=== PATIENT | male | born 1960 | race Caucasian/White ===

== ENCOUNTER 2016-12-14 08:54 | Inpatient (IN) | payer OTHER ==
[~2016-12-14] VITALS: Ht 172.7 cm; Wt 83.5 kg
[2016-12-14] MEDS ORDERED: SODIUM CHLORIDE 0.9% 1000ML 1,000 ML IV STA (09:23)
[2016-12-14] MEDS ORDERED: MoRPHine SULFATE 4 MG/ML 1 ML CARP\\VIAL IV STA ×2 (09:23→11:03)
[2016-12-14] MEDS ORDERED: ONDANSETRON INJ 2 MG/ML 2 ML VIAL IV STA (09:23)
[2016-12-14] MEDS ORDERED: LISI-461 PO (09:28)
[2016-12-14 09:48] LABS: BASO % 0.1 %; BASO ABS # 0.01 K/uL (0-0.2); COMPLETE YES; EOS % 0.1 %; HEMATOCRIT 48.8 % (42-52); IG% 0.3 %; LYMPH % 6.2 %; LYMPH ABS # 0.91 K/uL (1.2-3.4); MEAN CELL VOLUME 87.8 fL (80-100); MEAN CORPUSCULAR HEMOGLOBIN 31.3 pg (25-34); MEAN CORPUSCULAR HGB CONC 35.7 g/dl (32-36); MEAN PLATELET VOLUME 11.4 fL (7.4-10.4); MONO % 4.4 %; NEUT % 88.9 %; PLATELET COUNT 202 K/uL (130-400); RED BLOOD COUNT 5.56 M/uL (4.7-6.1); WHITE BLOOD COUNT 14.74 K/uL (4.8-10.8)
[2016-12-14 10:09] LABS: BUN/CREATININE RATIO 13.5 (10-20); CALCIUM 9.1 mg/dl (8.5-10.1); CREATININE 1.1 mg/dl (0.60-1.40); POTASSIUM 3.3 mmol/L (3.5-5.1)
[2016-12-14 10:26] LABS: URINE APPEARANCE TURBID (CLEAR); URINE BILIRUBIN NEG (NEG); URINE COLOR YELLOW; URINE EPITHELIAL CELL AUTO 20-30 /lpf (0-5); URINE NITRITE NEG (NEG); URINE SPECIFIC GRAVITY 1.019 (1.000-1.030); UROBILINOGEN NEG (NEG)
[2016-12-14 10:32] LABS: MANUAL MICROSCOPIC REQUIRED? NO; REVIEW REQ? NO
--- NOTE | 2016-12-14 10:58 | DIAGNOSTIC IMAGING REPORT ---
GALLBLADDER-ABD LIMITED HISTORY:56 yearsMaleABDOMINAL PAIN/GI COMPARISON: None available TECHNIQUE: Multiple real-time sonographic images of the abdominal right upper quadrant were obtained assessing grayscale appearance and color flow FINDINGS: The imaged pancreas is unremarkable. Distal body and tail are secured by bowel gas. Liver measures up to 14.9 cm and is unremarkable without focal mass. Common bile duct is normal, 0.5 cm. Echogenic nonshadowing focus along the nondependent gallbladder wall is seen, 0.4 cm. No internal flow is identified. No shadowing cholelithiasis, gallbladder wall thickening or pericholecystic fluid collections. The imaged right kidney is unremarkable without hydronephrosis. IMPRESSION: 1. No evidence of cholelithiasis or acute cholecystitis. 2. 0.4 cm non-shadowing echogenic focus along the nondependent gallbladder wall suggests gallbladder polyp. 3. No biliary ductal dilatation. The above report was generated using voice recognition software. It may contain grammatical, syntax or spelling errors. Electronically signed by: Senthil Louis M.D. 12/14/2016 10:57 AM Dictated Date/Time: 12/14/2016 10:54 AM
--- NOTE | 2016-12-14 11:01 | DIAGNOSTIC IMAGING REPORT ---
CHEST 2 VIEWS ROUTINE CLINICAL HISTORY: 56 years-old Male presenting with ABDOMINAL PAIN/GI. TECHNIQUE: PA and lateral views of the chest were obtained. COMPARISON: None. FINDINGS: Cardiomediastinal silhouette normal. Lungs and pleural spaces clear. Osseous structures and upper abdomen normal. IMPRESSION: 1. No acute cardiopulmonary disease. Electronically signed by: Brad Wiggins M.D. 12/14/2016 11:00 AM Dictated Date/Time: 12/14/2016 10:59 AM
[2016-12-14] MEDS ORDERED: SODIUM CHLORIDE 0.9% 1000ML 1,000 ML IV ONE (11:15)
[2016-12-14] MEDS ORDERED: ACETAMINOPHEN 325 MG TAB PO STA (11:24)
[2016-12-14 12:32] VITALS: BP 140/81; TEMP 36.6; Ht 172.7 cm; Wt 83.5 kg
[2016-12-14] MEDS ORDERED: MoRPHine SULFATE 4 MG/ML 1 ML CARP\\VIAL IV PRN (12:45)
[2016-12-14] MEDS ORDERED: ENALAPRILAT IV 1.25 MG in DEXTROSE 5% 25ML 25 ML IV PRN (12:45)
[2016-12-14] MEDS ORDERED: ONDANSETRON INJ 2 MG/ML 2 ML VIAL IV PRN (12:45)
[2016-12-14] MEDS ORDERED: POTASSIUM CHLORIDE 10 MEQ / 100ML WTR IV STA (12:54)
--- NOTE | 2016-12-14 12:58 | History and Physical ---
History & Physical Date & Time of Service: Dec 14, 2016 at 11:59 Chief Complaint: Severe Abdominal Pain Primary Care Physician: Selvin Menjivar M.D. History of Present Illness Source: patient Pt is a 56 yo male with a h/o HTN here with 8-9 hours of upper abd pain since 0200 this AM. Described as a gas pain or fullness, started low and increased throughout the AM, radiated to his back. Had a BM with no relief, tried TUMS with no change. Induced vomiting and this did not help either with the pain. Denies hematemesis or hematochezia. Pain currently 3/10 but received morphine, worse with moving around. Has never had pain like this before. Has some mild nausea. [place] some hot flashes and cold chills this AM but no documented fever. He does drink EtOH 1 glass wine daily and 2-3 drinks per day on the weekends. Lipase was elevated in the ER at 1600. LFTs normal, RUQ US was normal. CT pending at the time of admission. Pt will be admitted with acute pancreatitis. 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[employer] Immunizations History of Influenza Vaccine: Yes Allergies Coded Allergies: No Known Allergies (Unverified , 12/14/16) Home Medications Scheduled Lisinopril (Zestril), 10 MG PO DAILY Review of Systems Constitutional: + chills, + sweats Eyes: No problem reported ENT: No sore throat Respiratory: No cough, No shortness of breath Cardiovascular: No chest pain, No edema Abdomen: + pain, + nausea, No vomiting (except once self-induced), No diarrhea , No constipation, No GI bleeding Musculoskeletal: No joint pain Genitourinary - Male: No problem reported Neurologic: No problem reported Psychiatric: No problem reported Endocrine: No problem reported Hematologic / Lymphatic: No problem reported Integumentary: No problem reported Allergic / Immunologic: No problem reported Physical Exam Vital Signs Date Time Temp Pulse Resp B/P (MAP) Pulse Ox O2 Delivery O2 Flow Rate FiO2 12/14/16 11:14 69 18 140/81 98 Room Air 12/14/16 09:50 68 18 166/90 96 12/14/16 09:48 70 12/14/16 08:59 36.6 65 18 155/85 98 Room Air General Appearance: WD/WN, no apparent distress Head: normocephalic, atraumatic Eyes: normal inspection, PERRL, EOMI, sclerae normal ENT: hearing grossly normal, pharynx normal Neck: supple, no adenopathy, thyroid normal, no JVD, no carotid bruits, trachea midline Respiratory/Chest: lungs clear, normal breath sounds, no respiratory distress, no accessory muscle use Cardiovascular: regular rate, rhythm, no edema, no gallop, no JVD, no murmur, normal peripheral pulses Abdomen/GI: soft, no organomegaly, no pulsatile mass, + tenderness (mild in epigastric region and periumbilical region without guarding or rebound), + abnormal bowel sounds (hypoactive) Back: normal inspection, no muscle spasm Extremities/Musculoskelatal: normal inspection, no calf tenderness, normal capillary refill, no pedal edema, normal range of motion Neurologic/Psych: no motor/sensory deficits, alert, normal mood/affect, oriented x 3 Skin: normal color, warm/dry, no rash Lymphatic: no adenopathy Diagnostics Laboratory Results Results Past 24 Hours Test 12/14/16 09:40 12/14/16 09:47 12/14/16 09:50 Range/Units White Blood Count 14.74 4.8-10.8 K/uL Red Blood Count 5.56 4.7-6.1 M/uL Hemoglobin 17.4 14.0-18.0 g/dL Hematocrit 48.8 42-52 % Mean Corpuscular Volume 87.8 80-100 fL Mean Corpuscular Hemoglobin 31.3 25-34 pg Mean Corpuscular Hemoglobin Concent 35.7 32-36 g/dl Platelet Count 202 130-400 K/uL Mean Platelet Volume 11.4 7.4-10.4 fL Neutrophils (%) (Auto) 88.9 % Lymphocytes (%) (Auto) 6.2 % Monocytes (%) (Auto) 4.4 % Eosinophils (%) (Auto) 0.1 % Basophils (%) (Auto) 0.1 % Neutrophils # (Auto) 13.12 1.4-6.5 K/uL Lymphocytes # (Auto) 0.91 1.2-3.4 K/uL Monocytes # (Auto) 0.65 0.11-0.59 K/uL Eosinophils # (Auto) 0.01 0-0.5 K/uL Basophils # (Auto) 0.01 0-0.2 K/uL RDW Standard Deviation 40.0 36.4-46.3 fL RDW Coefficient of Variation 12.6 11.5-14.5 % Immature Granulocyte % (Auto) 0.3 % Immature Granulocyte # (Auto) 0.04 0.00-0.02 K/uL Sodium Level 138 136-145 mmol/L Potassium Level 3.3 3.5-5.1 mmol/L Chloride Level 104 98-107 mmol/L Carbon Dioxide Level 26 21-32 mmol/L Anion Gap 8.0 3-11 mmol/L Blood Urea Nitrogen 15 7-18 mg/dl Creatinine 1.10 0.60-1.40 mg/dl Est Creatinine Clear Calc Drug Dose 78.9 ml/min Estimated GFR () 86.5 Estimated GFR (Non- 74.6 BUN/Creatinine Ratio 13.5 10-20 Random Glucose 166 70-99 mg/dl Calcium Level 9.1 8.5-10.1 mg/dl Total Bilirubin 0.6 0.2-1 mg/dl Direct Bilirubin 0.2 0-0.2 mg/dl Aspartate Amino Transf (AST/SGOT) 21 15-37 U/L Alanine Aminotransferase (ALT/SGPT) 51 12-78 U/L Alkaline Phosphatase 103 45-117 U/L Total Protein 7.3 6.4-8.2 gm/dl Albumin 4.5 3.4-5.0 gm/dl Amylase Level 116 25-115 U/L Lipase 1691 73-393 U/L Bedside Troponin I < 0.030 0-0.045 ng/ml Urine Color YELLOW Urine Appearance TURBID CLEAR Urine pH 8.0 4.5-7.5 Urine Specific [place] 1.019 1.000-1.030 Urine Protein NEG NEG Urine Glucose (UA) NEG NEG Urine Ketones TRACE NEG Urine Occult Blood NEG NEG Urine Nitrite NEG NEG Urine Bilirubin NEG NEG Urine Urobilinogen NEG NEG Urine Leukocyte Esterase NEG NEG Urine WBC (Auto) 1-5 0-5 /hpf Urine RBC (Auto) 0-4 0-4 /hpf Urine Hyaline Casts (Auto) 1-5 0-5 /lpf Urine Epithelial Cells (Auto) 20-30 0-5 /lpf Urine Bacteria (Auto) NEG NEG Diagnostic Radiology RUQ US report reviewed and normal except possible GB polyp CXR normal (reviewed image personally) other (RBBB, otherwise normal, no old ECG to comapre to) Impression Assessment and Plan Pt is a 56 yo male with a h/o HTN, here with severe upper abdominal pain, elevated lipase, leukocytosis, most likely acute pancreatitis. Abdominal pain, acute pancreatitis--> LFTs normal, RUQ US normal except possible GB polyp. CT abd pending at time of admission. Does drink EtOH daily although not heavily. Most likely EtOH-induced acute pancreatitis. Mild-moderate case. [place] score 1. -strict NPO for now, may be able to advance diet in the AM as he is already improving -pain control with morphine -Zofran prn -IVFs with LR at 200 mls/hr -replace K+ and follow lytes -follow CBC in the AM -follow lipase, amylase in the AM -f/u on CT scan to check for pancreas divisum, hemorrhage, necrotizing pancreatitis or pseudocyst but don't expect that-also to f/u for any other cause of his symptoms -GI consultation appreciated -eventually will need outpatient colonoscopy as has never had one for screening purposes HTN-stable, NPO so holding lisinopril, home ASA (not on med recon) -restart lisinopril when takin gpo -IV Vasotec prn for high BP Proph-SCDs only in case of hemorrhage (once CT ok, can start Lovenox Dispo-Full Code Level of Care Med/Surg Resuscitation Status FULL RESUSCITATION VTE Prophylaxis VTE Risk Assessment Done? Y/N: Yes Risk Level: Low Given or contraindicated: SCD's Social Service Consult None Apply Additional Copies To Selvin Menjivar M.D.
[2016-12-14 13:14] VITALS: O2SAT 97
[2016-12-14] MEDS ORDERED: OPTIRAY 320 IV PRN (13:15)
--- NOTE | 2016-12-14 13:31 | Medical Student: [facility] ---
Med Student History & Physical Date & Time of Service: Dec 14, 2016 at 13:12 Chief Complaint: Severe Abdominal Pain Primary Care Physician: Selvin Menjivar M.D. History of Present Illness Source: patient Patient is a 56yo male with history of HTN presenting with diffuse upper abdominal pain. Patient was woken at approx. 2am this morning with sensation described initially as "gas pains" and fullness. Pain progressively worsened, intermittently wrapping around flanks to his back bilaterally. At 5am, patient had a BM and took Tums with no improvement of symptoms. At 6am, thinking this could be the result of food poisoning from the prior evenings takeout, patient induced one epsiode of vomitting that improved the fullness sensation but did not affect pain. He proceeded to the ED at 8am Pain is described as a dull ache/pressure rated 3 out of 10 that is unchanged with positioning that the patient reports was 5/10 when moving from stretcher to x-ray table. Somewhat relieved with morphine. Patient also reports mild nausea, one episode of dizziness during feverish-like symptoms (alteranting temp , chills, etc.) that has resolved. Denies any difficulty/pain with swallowing, denies any pain elsewhere, SOB, palpitations, tachycardia, vomiting (other than self-induced), and rashes. 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[employer]) Immunizations History of Influenza Vaccine: Yes Allergies Coded Allergies: No Known Allergies (Unverified , 12/14/16) Medications Lisinopril (Zestril), 10 MG PO DAILY Review of Systems Constitutional: + chills, + sweats Eyes: No problem reported ENT: No trouble swallowing, No problem reported Respiratory: No shortness of breath, No problem reported Cardiovascular: No chest pain, No edema, No palpitations, No problem reported Abdomen: + pain (diffuse tenderness) Musculoskeletal: No problem reported Genitourinary - Male: No problem reported Neurologic: No problem reported Endocrine: No fatigue, No problem reported Integumentary: No rash Physical Exam Vital Signs (24 Hours) Date Time Temp Pulse Resp B/P (MAP) Pulse Ox O2 Delivery O2 Flow Rate FiO2 12/14/16 12:32 36.6 18 140/81 Room Air 12/14/16 11:14 69 18 140/81 98 Room Air 12/14/16 09:50 68 18 166/90 96 12/14/16 09:48 70 12/14/16 08:59 36.6 65 18 155/85 98 Room Air General Appearance: WD/WN, + mild distress Head: normocephalic Eyes: PERRL (pupils small secondary to morphine), sclerae normal Neck: supple, no adenopathy, no JVD, no carotid bruits, trachea midline Respiratory/Chest: chest non-tender, lungs clear, normal breath sounds, no respiratory distress, no accessory muscle use Cardiovascular: regular rate, rhythm, no edema, no gallop, no JVD, no murmur, normal peripheral pulses Abdomen/GI: + tenderness, + abnormal bowel sounds (Hypoactive), + hernia ( Small umbilical hernia - reducable) Back: normal inspection, normal range of motion Extremities/Musculoskelatal: normal inspection, normal capillary refill, no pedal edema, normal range of motion Neurologic/Psych: alert, normal mood/affect, oriented x 3 Skin: normal color, warm/dry, no rash Lymphatic: no adenopathy Diagnostics Laboratory Results Results Past 24 Hours Test 12/14/16 09:40 12/14/16 09:47 12/14/16 09:50 Range/Units White Blood Count 14.74 4.8-10.8 K/uL Red Blood Count 5.56 4.7-6.1 M/uL Hemoglobin 17.4 14.0-18.0 g/dL Hematocrit 48.8 42-52 % Mean Corpuscular Volume 87.8 80-100 fL Mean Corpuscular Hemoglobin 31.3 25-34 pg Mean Corpuscular Hemoglobin Concent 35.7 32-36 g/dl Platelet Count 202 130-400 K/uL Mean Platelet Volume 11.4 7.4-10.4 fL Neutrophils (%) (Auto) 88.9 % Lymphocytes (%) (Auto) 6.2 % Monocytes (%) (Auto) 4.4 % Eosinophils (%) (Auto) 0.1 % Basophils (%) (Auto) 0.1 % Neutrophils # (Auto) 13.12 1.4-6.5 K/uL Lymphocytes # (Auto) 0.91 1.2-3.4 K/uL Monocytes # (Auto) 0.65 0.11-0.59 K/uL Eosinophils # (Auto) 0.01 0-0.5 K/uL Basophils # (Auto) 0.01 0-0.2 K/uL RDW Standard Deviation 40.0 36.4-46.3 fL RDW Coefficient of Variation 12.6 11.5-14.5 % Immature Granulocyte % (Auto) 0.3 % Immature Granulocyte # (Auto) 0.04 0.00-0.02 K/uL Sodium Level 138 136-145 mmol/L Potassium Level 3.3 3.5-5.1 mmol/L Chloride Level 104 98-107 mmol/L Carbon Dioxide Level 26 21-32 mmol/L Anion Gap 8.0 3-11 mmol/L Blood Urea Nitrogen 15 7-18 mg/dl Creatinine 1.10 0.60-1.40 mg/dl Est Creatinine Clear Calc Drug Dose 78.9 ml/min Estimated GFR () 86.5 Estimated GFR (Non- 74.6 BUN/Creatinine Ratio 13.5 10-20 Random Glucose 166 70-99 mg/dl Calcium Level 9.1 8.5-10.1 mg/dl Total Bilirubin 0.6 0.2-1 mg/dl Direct Bilirubin 0.2 0-0.2 mg/dl Aspartate Amino Transf (AST/SGOT) 21 15-37 U/L Alanine Aminotransferase (ALT/SGPT) 51 12-78 U/L Alkaline Phosphatase 103 45-117 U/L Total Protein 7.3 6.4-8.2 gm/dl Albumin 4.5 3.4-5.0 gm/dl Amylase Level 116 25-115 U/L Lipase 1691 73-393 U/L Bedside Troponin I < 0.030 0-0.045 ng/ml Urine Color YELLOW Urine Appearance TURBID CLEAR Urine pH 8.0 4.5-7.5 Urine Specific [place] 1.019 1.000-1.030 Urine Protein NEG NEG Urine Glucose (UA) NEG NEG Urine Ketones TRACE NEG Urine Occult Blood NEG NEG Urine Nitrite NEG NEG Urine Bilirubin NEG NEG Urine Urobilinogen NEG NEG Urine Leukocyte Esterase NEG NEG Urine WBC (Auto) 1-5 0-5 /hpf Urine RBC (Auto) 0-4 0-4 /hpf Urine Hyaline Casts (Auto) 1-5 0-5 /lpf Urine Epithelial Cells (Auto) 20-30 0-5 /lpf Urine Bacteria (Auto) NEG NEG Diagnostic Radiology Chest XRay Impression (12/14): 1. No acute cardiopulmonary disease. Gallbladder US Impressions (12/14): 1. No evidence of cholelithiasis or acute cholecystitis. 2. 0.4 cm non-shadowing echogenic focus along the nondependent gallbladder wall suggests gallbladder polyp. 3. No biliary ductal dilatation. Abdominal CT with oral contrast (12/24): Pending CXR normal EKG Normal rate and rhythm, prolonged QRS indicative of RBBB other (F/U with old EKG - PCP charts) Impression Assessment and Plan Patient is a pleasant, mildly distressed 56yo male with history significant for HTN, presenting with acute abdominal pain that is likely secondary to acute pancreatis, possibly alcohol induced. Plan: 1. Abdominal pain secondary to acute pancreatitis - diffuse tenderness to palpation, Ronson's criteria: 06/10pts (0-3% mortality risk), TRIBAL score: pts (0-4% risk) - Abdominal CT with oral contrast order to verify pancreatitis - possible etiology identification - NPO following completion of oral contrast for pancreatic rest - Change home PO lisinopril 10mg to IV enalapril PRN to prevent hospital/ pancreatitis induced hypotension, dose if systolic >180 or diastolic >110 - Lactated ringers at 200mL/hr - Monitor CDC with diff (leukocytosis), lipase, and amylase and trend changes - Morphine 4mg PRN for pain management - Consult with GI - Dietary consult for alcohol assessment and education 2. Hypokalemia - 3.3 (12/14) - Lacated ringers at 200mL/hr - 20meq IV potassium - Recheck with BMP prior to discharge with goal of 3.5 or higher 3. Abnormal EKG - prolonged QRS (RBBB) - Find prior EKG via PCP - Consult with cardiology - Repeat EKG prior to discharge Prophylaxis - Discussed need for colonoscopy due to age - SCDs for DVT prophylaxis Level of Care Med/Surg Advanced Directives Existing Living Will: No Existing Power of Menswear Salesperson: No Resuscitation Status FULL RESUSCITATION DVT Prophylaxis SCDs Note Total Time: Critical Care 30 - 74 minutes Consult with manager career to ensure home care for while is hospitalized. Patient is primary caregiver at night for hemiplegic with home health assistance during the day
--- NOTE | 2016-12-14 14:37 | DIAGNOSTIC IMAGING REPORT ---
CT ABD/PELVIS IV AND ORAL CONT CLINICAL HISTORY: acute pancreatitis; upper abdominal pain with elevated lipase COMPARISON STUDY: Biliary ultrasound dated 12/14/2016 TECHNIQUE: Following the IV administration of 93 mL of [id number]-320, CT scan of the abdomen and pelvis was performed from the lung bases to the proximal femurs. Images are reviewed in the axial, sagittal, and coronal planes. IV contrast was administered without complication. CT DOSE: 525.76 mGy.cm FINDINGS: Lower chest: There are mild basilar atelectatic changes. Liver: There is mild hepatic steatosis. No focal masses are visualized. Portal veins are patent. Gallbladder: No calculi are visualized. Spleen: Normal in size and attenuation. Pancreas: No pancreatic masses are visualized. There are no peripancreatic fluid collections. There is no evidence of pancreatic necrosis. Adrenal glands: Unremarkable. Kidneys: There are 2 right renal cysts measuring 13 mm and 12 mm respectively. There is no hydronephrosis. There is a 6 mm left renal cyst. Bowel: There are no transition zones indicate bowel obstruction. The appendix appears normal. There is no acute diverticulitis. Peritoneum: There is no intraperitoneal free air or abdominal ascites. There is a tiny fat-containing umbilical hernia. There is a small right inguinal hernia containing fat and fluid. Vasculature: The abdominal aorta is normal in course and caliber. Adenopathy: None. Pelvic viscera: The prostate is mildly enlarged. Skeletal structures: No destructive osseous lesions are seen. IMPRESSION: 1. No CT evidence of acute pancreatitis 2. No evidence of ductal dilatation 3. No evidence of bowel obstruction. No evidence of free air 4. Normal appendix. No evidence of diverticulitis. Electronically signed by: Ted Delarosa M.D. 12/14/2016 2:35 PM Dictated Date/Time: 12/14/2016 2:32 PM
[2016-12-14] MEDS: LACTATED RINGER'S 1000ML 1,000 ML IV SCH ×3 (14:50→22:44)
[2016-12-14] MEDS: POTASSIUM CHLR 10MEQ / WTR IV SCH ×2 (14:51→15:26)
--- NOTE | 2016-12-14 15:25 | EMERGENCY ROOM VISIT NOTE ---
ED Visit Note First contact with patient: 09:06 Chief Complaint: Abdominal pain. History of Present Illness: Mr. Kapadia is a 56 year-old white male who ambulates into the ED complaining of bilateral upper quadrant abdominal pain. Historically patient reports no significant gastrointestinal disorders or surgeries. Patient reports a gradual onset of bilateral upper quadrant abdominal pain that started approximately 7 hours ago. Since that time the pain has been constant and gradually increasing in intensity. The pain is currently described as cramping. The pain is intermittently radiating around the abdomen to the flanks bilaterally. He has not identified any aggravating or alleviating factors related to the symptoms. He reports shortly after the pain started he took 1 dose of ibuprofen without relief of his discomfort. Associated with his pain he reports he has been having episodes of feeling hot and cold and has had intermittent diaphoresis. Additionally he did report that he thought he might feel well if he vomited so he did try to force himself to vomit; he was unsuccessful. Patient does report he drinks approximately 3 alcoholic beverages per day; this weekend he did drink his alcohol as noted but denies that he binged or drank excessively. Patient denies skin eruptions, skin color changes, upper respiratory tract symptoms, shortness of breath, chest pain, nausea, vomiting, diarrhea, constipation, rectal bleeding, black/tarry stools, urinary symptoms, hematuria. Review of Systems: As noted above in history of present illness. All body systems were reviewed and found to be negative as noted above. Past Medical History: Hypertension, status post wisdom teeth extraction. Current Medications: Lisinopril. Allergies to Medications: Patient denies. Social History: Patient is currently employed; he lives with his and feels safe in his home environment; he denies tobacco use and admits to alcohol use. Physical Examination: Vital Signs: Date Time Temp Pulse Resp B/P (MAP) Pulse Ox O2 Delivery O2 Flow Rate FiO2 12/14/16 12:32 36.6 18 140/81 Room Air 12/14/16 11:14 69 18 140/81 98 Room Air 12/14/16 09:50 68 18 166/90 96 12/14/16 08:59 36.6 65 18 155/85 98 Room Air GENERAL: 56-year-old male in mild to moderate distress due to pain, nontoxic- appearing, afebrile and hemodynamically stable. NEUROLOGICAL: Awake, alert and oriented to person, place and time. Answering questions appropriately and following commands. Normal gait. Good hand eye coordination. SKIN: Warm, dry and pink. No soft tissue eruptions or trauma noted. HEENT: Atraumatic and normocephalic. PERRLA. Sclera white and conjunctiva pink. Oral cavity moist and pink. Pharynx is nonerythematous or edematous. Speech normal. No lymphadenopathy. Trachea midline. No jugular venous distention. BACK: No tenderness over the bony spine. No CVA tenderness. THORAX: Lungs sounds are clear to auscultation and equal bilaterally with symmetrical chest wall. No wheezing, rales or rhonchi. No crepitus, tenderness , subcutaneous air or deformities noted. HEART: Regular rate and rhythm. No gallops, rubs or murmurs are appreciated. ABDOMEN: Slightly protuberant and soft with moderate tenderness in the right upper quadrant and mild tenderness in the epigastrium and left upper quadrant. Positive bowel sounds in all quadrants. No guarding, rigidity or organomegaly. EXTREMITIES: Moves all extremities well on command and with purpose. All distal neurovascular statuses are intact and equal bilaterally. ED Course: Patient is assessed as noted above. Patient's medication list was reviewed. Laboratory Testing: Test 12/14/16 09:40 12/14/16 09:47 12/14/16 09:50 Range/Units White Blood Count 14.74 4.8-10.8 K/uL Red Blood Count 5.56 4.7-6.1 M/uL Hemoglobin 17.4 14.0-18.0 g/dL Hematocrit 48.8 42-52 % Mean Corpuscular Volume 87.8 80-100 fL Mean Corpuscular Hemoglobin 31.3 25-34 pg Mean Corpuscular Hemoglobin Concent 35.7 32-36 g/dl Platelet Count 202 130-400 K/uL Mean Platelet Volume 11.4 7.4-10.4 fL Neutrophils (%) (Auto) 88.9 % Lymphocytes (%) (Auto) 6.2 % Monocytes (%) (Auto) 4.4 % Eosinophils (%) (Auto) 0.1 % Basophils (%) (Auto) 0.1 % Neutrophils # (Auto) 13.12 1.4-6.5 K/uL Lymphocytes # (Auto) 0.91 1.2-3.4 K/uL Monocytes # (Auto) 0.65 0.11-0.59 K/uL Eosinophils # (Auto) 0.01 0-0.5 K/uL Basophils # (Auto) 0.01 0-0.2 K/uL RDW Standard Deviation 40.0 36.4-46.3 fL RDW Coefficient of Variation 12.6 11.5-14.5 % Immature Granulocyte % (Auto) 0.3 % Immature Granulocyte # (Auto) 0.04 0.00-0.02 K/uL Sodium Level 138 136-145 mmol/L Potassium Level 3.3 3.5-5.1 mmol/L Chloride Level 104 98-107 mmol/L Carbon Dioxide Level 26 21-32 mmol/L Anion Gap 8.0 3-11 mmol/L Blood Urea Nitrogen 15 7-18 mg/dl Creatinine 1.10 0.60-1.40 mg/dl Est Creatinine Clear Calc Drug Dose 78.9 ml/min Estimated GFR () 86.5 Estimated GFR (Non- 74.6 BUN/Creatinine Ratio 13.5 10-20 Random Glucose 166 70-99 mg/dl Calcium Level 9.1 8.5-10.1 mg/dl Total Bilirubin 0.6 0.2-1 mg/dl Direct Bilirubin 0.2 0-0.2 mg/dl Aspartate Amino Transf (AST/SGOT) 21 15-37 U/L Alanine Aminotransferase (ALT/SGPT) 51 12-78 U/L Alkaline Phosphatase 103 45-117 U/L Total Protein 7.3 6.4-8.2 gm/dl Albumin 4.5 3.4-5.0 gm/dl Triglycerides Level 142 0-150 mg/dl Amylase Level 116 25-115 U/L Lipase 1691 73-393 U/L Hepatitis C Antibody Screen NEG NEG Bedside Troponin I < 0.030 0-0.045 ng/ml Urine Color YELLOW Urine Appearance TURBID CLEAR Urine pH 8.0 4.5-7.5 Urine Specific [place] 1.019 1.000-1.030 Urine Protein NEG NEG Urine Glucose (UA) NEG NEG Urine Ketones TRACE NEG Urine Occult Blood NEG NEG Urine Nitrite NEG NEG Urine Bilirubin NEG NEG Urine Urobilinogen NEG NEG Urine Leukocyte Esterase NEG NEG Urine WBC (Auto) 1-5 0-5 /hpf Urine RBC (Auto) 0-4 0-4 /hpf Urine Hyaline Casts (Auto) 1-5 0-5 /lpf Urine Epithelial Cells (Auto) 20-30 0-5 /lpf Urine Bacteria (Auto) NEG NEG Gallbladder Ultrasound: Was reviewed by myself and read by the radiologist showing no evidence of cholelithiasis or acute cholecystitis, 0.4 cm non- shadowing echogenic focus along the nondependent gallbladder wall suggestive of a polyp and no biliary duct dilatation. Chest X-Rays: Were read by myself and shows no acute infiltrates, effusions or pneumothorax. Normal heart silhouette and bony anatomy. No free air under the diaphragm. Contrast Abdominal/Pelvic CT: Results pending prior to admission. EKG: Was read by myself and reviewed with Dr. Christianson; shows normal sinus rhythm with a ventricular rate of 65 bpm. Right bundle-branch block was noted. No previous EKGs were available for comparison. Patient was hydrated with normal saline and he initially received 4 mg of morphine IV for pain and 4 mg of Zofran IV. Patient was reassessed multiple times during his stay in the emergency department. After patient returned from ultrasound he reported increasing pain and received an additional 4 mg of morphine IV. Patient's case was reviewed with Dr. Christianson; we agreed on diagnostic approach, treatment, disposition and plan. Patient's case was consulted with case management and Dr. Andres, hospitalist ; for medical observation/admission. Patient was educated about today's findings. Clinical Impression: Acute pancreatitis. Decision-Making: Initially my differential diagnosis I considered hepatitis, cholecystitis, pancreatitis, GERD, acute coronary syndrome, pneumonia, and other causes. Disposition and Plan: Patient to be brought in the hospital for observation/ admission; please see the hospitalist notes and orders for final disposition and plan.
--- NOTE | 2016-12-14 16:52 | Gastrointestinal Consultation ---
Gastrointestinal Consultation Date of Consultation: Dec 14, 2016 Attending Physician: Dr Menjivar Consulting Physician: Juanjose Salas Reason for Consultation: Pancreatitis History of Present Illness Patient is a 56 year old male who presents with acute onset epigastric pain radiating to the back. The patient is been consuming alcohol on a daily basis. He reports having a glass of wine with dinner on a daily basis followed by a couple beers per day on the weekends. He has not had pancreatitis in the past. When he presented to the emergency room his lipase was about 1600 and he had atypical pain pattern but his ultrasound and CT scan show no acute pancreatic inflammation. There is no evidence of all stones or common bile duct stones in his liver profile is normal. His calcium level is also normal. No family history of pancreatitis. Triglyceride level has been ordered. Imaging studies so far did not reveal any congenital anatomic abnormalities. Social History Smoking Status: Never Smoker Drug Use: none Marital Status: Occupation Status: employed ([employer] at [employer]) Allergies Coded Allergies: No Known Allergies (Unverified , 12/14/16) Current Medications Home Meds and Scripts Medications Dose Route/Sig Max Daily Dose Days Date Category Zestril (Lisinopril) 10 Mg Tab 10 Mg PO DAILY 12/14/16 Reported Physical Exam Date Time Temp Pulse Resp B/P (MAP) Pulse Ox O2 Delivery O2 Flow Rate FiO2 12/14/16 16:00 Room Air 12/14/16 13:14 69 15 135/73 97 Room Air 12/14/16 12:32 36.6 18 140/81 Room Air 12/14/16 11:14 69 18 140/81 98 Room Air 12/14/16 09:50 68 18 166/90 96 12/14/16 09:48 70 12/14/16 08:59 36.6 65 18 155/85 98 Room Air Laboratory Results Last 24 Hours Test 12/14/16 09:40 12/14/16 09:47 12/14/16 09:50 White Blood Count 14.74 K/uL Red Blood Count 5.56 M/uL Hemoglobin 17.4 g/dL Hematocrit 48.8 % Mean Corpuscular Volume 87.8 fL Mean Corpuscular Hemoglobin 31.3 pg Mean Corpuscular Hemoglobin Concent 35.7 g/dl Platelet Count 202 K/uL Mean Platelet Volume 11.4 fL Neutrophils (%) (Auto) 88.9 % Lymphocytes (%) (Auto) 6.2 % Monocytes (%) (Auto) 4.4 % Eosinophils (%) (Auto) 0.1 % Basophils (%) (Auto) 0.1 % Neutrophils # (Auto) 13.12 K/uL Lymphocytes # (Auto) 0.91 K/uL Monocytes # (Auto) 0.65 K/uL Eosinophils # (Auto) 0.01 K/uL Basophils # (Auto) 0.01 K/uL RDW Standard Deviation 40.0 fL RDW Coefficient of Variation 12.6 % Immature Granulocyte % (Auto) 0.3 % Immature Granulocyte # (Auto) 0.04 K/uL Sodium Level 138 mmol/L Potassium Level 3.3 mmol/L Chloride Level 104 mmol/L Carbon Dioxide Level 26 mmol/L Anion Gap 8.0 mmol/L Blood Urea Nitrogen 15 mg/dl Creatinine 1.10 mg/dl Est Creatinine Clear Calc Drug Dose 78.9 ml/min Estimated GFR () 86.5 Estimated GFR (Non- 74.6 BUN/Creatinine Ratio 13.5 Random Glucose 166 mg/dl Calcium Level 9.1 mg/dl Total Bilirubin 0.6 mg/dl Direct Bilirubin 0.2 mg/dl Aspartate Amino Transf (AST/SGOT) 21 U/L Alanine Aminotransferase (ALT/SGPT) 51 U/L Alkaline Phosphatase 103 U/L Total Protein 7.3 gm/dl Albumin 4.5 gm/dl Triglycerides Level 142 mg/dl Amylase Level 116 U/L Lipase 1691 U/L Hepatitis C Antibody Screen NEG Bedside Troponin I < 0.030 ng/ml Urine Color YELLOW Urine Appearance TURBID Urine pH 8.0 Urine Specific [place] 1.019 Urine Protein NEG Urine Glucose (UA) NEG Urine Ketones TRACE Urine Occult Blood NEG Urine Nitrite NEG Urine Bilirubin NEG Urine Urobilinogen NEG Urine Leukocyte Esterase NEG Urine WBC (Auto) 1-5 /hpf Urine RBC (Auto) 0-4 /hpf Urine Hyaline Casts (Auto) 1-5 /lpf Urine Epithelial Cells (Auto) 20-30 /lpf Urine Bacteria (Auto) NEG Impression Patient is a 56 year old male with acute pancreatitis probably alcohol related. This appears to be a mild case with a good prognostic factors. I advised him to abstain from alcohol in the future. Hopefully he can begin a low-fat diet tomorrow. He takes care of his disabled at home and is eager to get home as soon as possible. Plan Patient will be followed clinically and advance diet to low-fat diet as tolerated. Await results of triglyceride testing.
[2016-12-14 23:31] VITALS: BP 158/80; PULSE 90; TEMP 37; O2SAT 96
[2016-12-15] MEDS: LACTATED RINGER'S 1000ML 1,000 ML IV SCH ×3 (03:53→13:34)
[2016-12-15 06:46] LABS: BASO % 0.2 %; BASO ABS # 0.02 K/uL (0-0.2); COMPLETE YES; EOS % 0.9 %; IG% 0.3 %; LYMPH % 20.6 %; LYMPH ABS # 2.27 K/uL (1.2-3.4); MEAN CELL VOLUME 89.2 fL (80-100); MEAN CORPUSCULAR HEMOGLOBIN 30.9 pg (25-34); MEAN CORPUSCULAR HGB CONC 34.7 g/dl (32-36); MEAN PLATELET VOLUME 11.7 fL (7.4-10.4); MONO % 13.5 %; NEUT % 64.5 %; PLATELET COUNT 168 K/uL (130-400); RED BLOOD COUNT 4.82 M/uL (4.7-6.1); WHITE BLOOD COUNT 11.01 K/uL (4.8-10.8)
[2016-12-15 07:17] LABS: ALB/GLOB RATIO 1.2 (0.9-2); CALCIUM 8.2 mg/dl (8.5-10.1); CREATININE 0.97 mg/dl (0.60-1.40); POTASSIUM 3.7 mmol/L (3.5-5.1)
[2016-12-15 07:29] VITALS: BP 151/83; PULSE 90; TEMP 36.8; O2SAT 91
--- NOTE | 2016-12-15 13:11 | Discharge Instructions ---
Discharge Instructions Date of Service Dec 15, 2016. Admission Reason for Admission: Acute Pancreatitis Discharge Discharge Diagnosis / Problem: Acute Pancreatitis Discharge Goals Goal(s): Decrease discomfort Activity Recommendations Activity Limitations: resume your previous activity . Current Hospital Diet Patient's current hospital diet: Low Fat Diet, AHA Diet (Heart Healthy) Discharge Diet Recommended Diet: Low Fat Diet Pending Studies Studies pending at discharge: no Laboratory Results Lipid Panel Test 12/14/16 09:40 Range/Units Triglycerides Level 142 0-150 mg/dl Medical Emergencies . Who to Call and When: Medical Emergencies: If at any time you feel your situation is an emergency, please call 911 immediately. . Non-Emergent Contact Non-Emergency issues call your: Primary Care Provider . . "Provider Documentation" section prepared by [employer] Hatch. . VTE Core Measure Inpt VTE Proph given/why not?: SCD's
[2016-12-15 13:17] VITALS: BP 151/83; PULSE 90; TEMP 36.8; O2SAT 91
--- NOTE | 2016-12-31 01:16 | DISCHARGE SUMMARY ---
Please see dictated H&P for full details of his presentation. The patient is a 56-year-old who had 8-9 hours of upper abdominal pain since 2:00 a.m. in the morning prior to admission, the night prior to admission. He described it as a gas pain or fullness. It had increased throughout the evening, radiating to his back and abdominal pain. He tried Tums with no relief. He induced vomiting and this did not help his pain either. He drinks wine and 2-3 beers on the weekends. He was discovered to have acute pancreatitis. His ALT was 51, alk phos of 103, albumin 4.5, amylase was 116, lipase of 1691, this was 12/14/2016; his amylase was ____ and his lipase was 150. CT of the abdomen and pelvis showed no CT evidence of acute pancreatitis, no evidence of ductal dilatation, no evidence of bowel obstruction, no evidence of diverticulitis. Chest x-ray, he had no active disease. Gallbladder ultrasound, no evidence of cholelithiasis or acute cholecystitis. There was a 0.4 cm nonshadowing echogenic focus along the nondependent wall of the gallbladder, suggestive of gallbladder polyp. No biliary dilatation. His symptoms resolved. He was seen in consultation by Dr. Juanjose Salas who believed that his constellation of symptoms was probably secondary to acute alcoholic pancreatitis. He was advised to quit drinking. Time spent in review of the chart, discussion with the patient on the date of discharge 31 minutes. He was discharged home on lisinopril 10 daily. He was instructed to follow up with his primary care doctor in 1 week.
== END 2016-12-15 13:39 | disposition home or self-care (01) | DRG 440 ==
LOC: C.EDB 08:56 → C.4E 12:44 → ENRESERV 13:01
PROVIDERS: ADMIT Family Medicine; ATTEND Family Medicine
DX: K85.20 Alcohol induced acute pancreatitis without necrosis or infection (principal); K82.4 Cholesterolosis of gallbladder; I10 Essential (primary) hypertension; Z79.82 Long term (current) use of aspirin; Z79.899 Other long term (current) drug therapy